=== PATIENT | female | born 1965 | race Caucasian/White ===

== ENCOUNTER 2018-09-10 11:05 | Emergency (ER) | payer MEDICAID ==
[~2018-09-10] VITALS: Ht 175.3 cm; Wt 72.3 kg
[2018-09-10 11:14] VITALS: BP 145/77; PULSE 84; TEMP 98.5
[2018-09-10] MEDS ORDERED: LIPITOR20 MG PO (11:38)
[2018-09-10] MEDS ORDERED: ABILIFY 15MG TA15 MG PO (11:39)
[2018-09-10] MEDS ORDERED: CLEOCIN HCL300 MG PO (11:39)
[2018-09-10] MEDS ORDERED: HIBICLENS4% TP (11:39)
[2018-09-10] MEDS ORDERED: SYNTHROID0.137 MG (11:40)
[2018-09-10] MEDS ORDERED: PROZAC40 MG PO (11:40)
[2018-09-10] MEDS ORDERED: DESYREL 100MG100 MG PO (11:40)
== END 2018-09-10 12:12 | disposition home or self-care (01) ==
LOC: COL.ER 11:05
DX: S41.102A Unspecified open wound of left upper arm, initial encounter (principal); F31.9 Bipolar disorder, unspecified; F17.210 Nicotine dependence, cigarettes, uncomplicated; F12.90 Cannabis use, unspecified, uncomplicated; Z88.0 Allergy status to penicillin; X95.9XXA Assault by unspecified firearm discharge, initial encounter

== ENCOUNTER 2018-09-12 06:33 | Emergency (ER) | payer MEDICARE ==
[~2018-09-12] VITALS: Ht 175.3 cm; Wt 72.7 kg
[~2018-09-12 06:33] MED LIST: ABILIFY 15MG TA15 MG PO; CLEOCIN HCL300 MG PO; DESYREL 100MG100 MG PO; HIBICLENS4% TP; LIPITOR20 MG PO; PROZAC40 MG PO; SYNTHROID0.137 MG
[2018-09-12 06:44] VITALS: BP 119/80; TEMP 98
[2018-09-12 07:42] LABS: COLLECTION METHOD CLEAN CATCH
[2018-09-12 07:45] LABS: BASO # 0.1 (0.0-0.2); BASO % 0.9 % (0.0-2.0); EOS # 0.4 (0.0-0.7); EOS % 5.2 % (0-4.0); GRAN # 4.5 (1.4-6.5); HEMOGLOBIN 11.8 g/dl (12.5-16.0); LYMPH # 2.2 (1.2-3.4); LYMPH % 28.6 % (20.0-51.0); MEAN CELL VOLUME 91 fl (80.0-100.0); MEAN CORPUSCULAR HEMOGLOBIN 30 pg (27.0-31.0); MEAN CORPUSCULAR HGB CONC 33 g/dl (33.0-37.0); MEAN PLATELET VOLUME 9.3 fl (7.4-10.4); MONO # 0.4 (0.1-0.6); MONO % 4.9 % (1.7-9.3); PLATELET COUNT 377 K/mm3 (130-400); RED BLOOD COUNT 3.96 M/mm3 (4.10-5.30); REDCELL DISTRIBUTION WIDTH-CV 14.3 % (11.5-14.5)
[2018-09-12 07:53] LABS: PH 7 (5-8); SQUAMOUS EPITHELIAL 0-2 /hpf; URINE APPEARANCE Clear; URINE BACTERIA None Seen /hpf; URINE BILIRUBIN Negative (NEGATIVE); URINE BLOOD Negative (NEGATIVE); URINE COLOR Yellow; URINE GLUCOSE Negative (NEGATIVE); URINE KETONE Negative (NEGATIVE); URINE LEUKOCYTE ESTERASE Negative (NEGATIVE); URINE NITRATE Negative (NEGATIVE); URINE PROTEIN(semi-quant) Negative (NEGATIVE); URINE RBC 0-2 /hpf; URINE UROBILINOGEN Negative (NEGATIVE)
[2018-09-12 07:56] LABS: ALANINE AMINOTRANSFERASE 29 U/L (9-52); ALKALINE PHOSPHATASE 86 U/L (50-136); ANION GAP 9 mmol/L (7-16); AST,SGOT 46 U/L (15-37); BILIRUBIN,TOTAL 0.2 mg/dL (0.0-1.0); BLOOD UREA NITROGEN 18 mg/dL (7-17); CALCIUM 9.6 mg/dL (8.4-10.2); CARBON DIOXIDE 28 mmol/L (22-30); CHLORIDE 104 mmol/L (98-107); CREATININE, serum 0.88 (0.52-1.25); GLUCOSE 94 mg/dL (74-106); POTASSIUM 4.4 mmol/L (3.4-5.0); SODIUM 141 mmol/L (137-145)
[2018-09-12 08:00] VITALS: PULSE 84
[2018-09-12 08:06] LABS: ACETAMINOPHEN < 10 ug/mL (10-30); ALCOHOL(ethanol),MEDICAL < 10 mg/dL; SALICYLATE < 1.0 mg/dL
[2018-09-12 08:11] LABS: TRICYCLIC ANTIDEPRESS URINE NEGATIVE
[2018-09-12] MEDS ORDERED: PROZAC40 MG PO (09:54)
[2018-09-12] MEDS ORDERED: DESYREL 100MG100 MG PO (09:54)
[2018-09-12] MEDS ORDERED: NORCO 325 MG-51 TAB PO (09:54)
== END 2018-09-12 10:10 | disposition home or self-care (01) ==
LOC: COL.ER 06:33
PROVIDERS: Family Medicine
DX: F32.9 Major depressive disorder, single episode, unspecified (principal); E03.9 Hypothyroidism, unspecified; F17.210 Nicotine dependence, cigarettes, uncomplicated; Z87.828 Personal history of other (healed) physical injury and trauma